=== PATIENT | male | born 1955 | race Native Hawaiian/Other Pacific Islander ===

== ENCOUNTER 2022-01-02 22:13 | Emergency (ER) | payer OTHER ==
[~2022-01-02] VITALS: Ht 160 cm; Wt 62.1 kg
[2022-01-02 22:38] LABS: PLATELET COUNT 137 K/uL (142-355)
[2022-01-02 22:56] LABS: POTASSIUM 4.2 mmol/L (3.6-5.2)
[2022-01-02 23:45] VITALS: BP 115/67; TEMP 97.8
[2022-01-03] MEDS ORDERED: LEVO0.117 PO (08:48)
[2022-01-03] MEDS ORDERED: LISINOPRIL 20 MG PO (08:49)
[2022-01-03] MEDS ORDERED: PANTOPRAZOLE 40MG TA PO (08:50)
[2022-01-03] MEDS ORDERED: SIMV20TA2 PO (08:50)
[2022-01-03] MEDS ORDERED: CYAN10009 IM (08:52)
[2022-01-03] MEDS ORDERED: DIVALPROEX125 MG PO (08:54)
[2022-01-03] MEDS ORDERED: ELIQUIS5 MG PO (08:55)
[2022-01-03] MEDS ORDERED: MAGNESIUM 400 M1 TAB PO (08:55)
[2022-01-03] MEDS ORDERED: METF500T PO (08:56)
[2022-01-03] MEDS ORDERED: MEMA5TAB PO (08:56)
[2022-01-03] MEDS ORDERED: METO50TA63 PO (08:58)
[2022-01-03] MEDS ORDERED: ALPRAZOLAM 1 MG PO (08:59)
[2022-01-03] MEDS ORDERED: NOVOLOG FL100 UNIT/M SC (09:02)
[2022-01-03] MEDS ORDERED: GLUCAGEN HYPOKIT1 MG SC (09:03)
[2022-01-03] MEDS ORDERED: GLUCOSE GEL PO (09:05)
== END 2022-01-02 23:50 | disposition still patient (30) ==
LOC: ED 22:13
PROVIDERS: Emergency Medicine
DX: F03.91 Unspecified dementia, unspecified severity, with behavioral disturbance (principal); R45.1 Restlessness and agitation; U07.1 COVID-19; Z04.6 Encounter for general psychiatric examination, requested by authority
CPT/HCPCS: 36415; 80053; 81002; 85027; 87635; 93005; 99283; U0003

== ENCOUNTER 2022-08-19 20:42 | Emergency (ER) | payer OTHER ==
[~2022-08-19] VITALS: Ht 157.5 cm; Wt 62.1 kg
[2022-08-19 20:42] VITALS: BP 128/70; TEMP 98.9
[~2022-08-19 20:42] MED LIST: ACET-206 PO; ALPRAZOLAM 1 MG PO; APIX1TAB PO; CYAN10009 IM; DIVALPROEX125 MG PO; DIVALPROEX500 MG PO; ELIQUIS5 MG PO; GLUCAGEN HYPOKIT1 MG SC; GLUCOSE GEL PO; INSUINJ20 SC; LEVO0.117 PO; LISI20TA11 PO; LISINOPRIL 20 MG PO; LORA0.5T17 PO; MAGN400T4 PO; MAGNESIUM 400 M1 TAB PO; MAGNSUS68 PO; MEMA5TAB PO; METF500T PO; METO50TA27 PO; METO50TA63 PO; NOVOLOG FL100 UNIT/M SC; OLANZAPINE5 MG PO; PANTOPRAZOLE 40MG TA PO; SIMV20TA2 PO
[2022-08-19 21:03] LABS: PLATELET COUNT 131 K/uL (142-355)
[2022-08-19 21:14] LABS: POTASSIUM 4.6 mmol/L (3.6-5.2)
[2022-08-20] MEDS ORDERED: DIVALPROEX125 MG PO (08:38)
[2022-08-20] MEDS ORDERED: DIVALPROEX250 M1 PO (08:39)
[2022-08-20] MEDS ORDERED: LORA0.5T17 PO (08:41)
[2022-08-20] MEDS ORDERED: MILK OF MA400 MG/5 M PO (08:46)
[2022-08-20] MEDS ORDERED: PREDNISONE20 MG PO (08:48)
== END 2022-08-19 21:47 | disposition still patient (30) ==
LOC: ED 20:42
PROVIDERS: Emergency Medicine
DX: F03.911 Unspecified dementia, unspecified severity, with agitation (principal); E11.65 Type 2 diabetes mellitus with hyperglycemia; Z79.4 Long term (current) use of insulin; Z11.52 Encounter for screening for COVID-19; Z04.6 Encounter for general psychiatric examination, requested by authority
CPT/HCPCS: 36415; 80053; 81002; 85027; 87635; 93005; 99283; U0003

== ENCOUNTER 2023-01-19 22:48 | Emergency (ER) | payer OTHER ==
[~2023-01-19] VITALS: Ht 160 cm; Wt 59.0 kg
[~2023-01-19 22:48] MED LIST changes: +DIVALPROEX250 M1 PO; +DIVALPROEX250 MG PO; +INSU-1996 SC; +INSU100P SC; -LISINOPRIL 20 MG PO; +MILK OF MA400 MG/5 M PO; +PREDNISONE20 MG PO
[2023-01-19 22:50] VITALS: TEMP 97.6
[2023-01-19 23:13] LABS: PLATELET COUNT 124 K/uL (142-355)
[2023-01-19 23:33] LABS: POTASSIUM 3.8 mmol/L (3.6-5.2)
[2023-01-20] VITALS: BP 110/45
[2023-01-20] MEDS ORDERED: TYLENOL325 MG PO (08:36)
[2023-01-20] MEDS ORDERED: ASPI325T40 PO (08:37)
[2023-01-20] MEDS ORDERED: LIPITOR20 MG PO (08:37)
[2023-01-20] MEDS ORDERED: CILOSTAZOL PO (08:45)
[2023-01-20] MEDS ORDERED: DIVALPROEX250 MG PO (08:46)
[2023-01-20] MEDS ORDERED: NEURONTIN 100M100 MG PO (08:47)
[2023-01-20] MEDS ORDERED: [UNRECOGNIZED DRUG - OTHER] EX (08:48)
[2023-01-20] MEDS ORDERED: METFORMIN HYDR850 MG PO (08:55)
[2023-02-03] MEDS ORDERED: LORA0.5T17 PO (09:51)
== END 2023-01-20 | disposition other institution (70) ==
LOC: ED 22:48
PROVIDERS: Family Medicine
DX: F29 Unspecified psychosis not due to a substance or known physiological condition (principal); R45.6 Violent behavior; R45.1 Restlessness and agitation; Z02.79 Encounter for issue of other medical certificate
CPT/HCPCS: 80053; 81002; 85027; 87635; 93005; 99283; J1885; J2405; U0003